=== PATIENT | female | born 1945 ===

== ENCOUNTER 2016-07-08 16:26 | Emergency (ER) | payer MEDICARE, MEDICAID ==
[2016-07-08 16:27] VITALS: BMI 31.1
[2016-07-08 16:52] VITALS: TEMP 98
--- NOTE | 2016-07-08 18:23 | C.PDOC ---
History Of Present Illness The patient, a 70 y/o female, presents to the ED for evaluation of right forearm and wrist pain after she sustained a fall [employer]. Patient states she accidentally tripped and fell on a curb, leading to her current injury. Patient denies head injury, LOC, neck pain, back pain, extremity numbness/weakness. Time Seen by Provider: 07/08/16 16:52 Chief Complaint (Nursing): Upper Extremity Problem/Injury History Per: Patient History/Exam Limitations: no limitations Onset/Duration Of Symptoms: Hrs Current Symptoms Are (Timing): Still Present Quality: "Pain" Additional History Per: Patient Past Medical History Reviewed: Historical Data, Nursing Documentation, Vital Signs Vital Signs: Last Vital Signs Temp 98.0 F 07/08/16 16:48 Pulse 78 07/08/16 19:08 Resp 16 07/08/16 19:08 BP 137/81 07/08/16 19:08 Pulse Ox 96 07/08/16 20:43 - Medical History PMH: Hypercholesterolemia, Hypothyroidism Surgical History: Appendectomy, Cholecystectomy - [facility] Procedures APPLICATION OF SPLINT (10/20/14) Family History: States: Unknown Family Hx - Social History Hx Tobacco Use: No Hx Alcohol Use: No Hx Substance Use: No - Immunization History Hx Tetanus Toxoid Vaccination: No Hx Influenza Vaccination: No Hx Pneumococcal Vaccination: No Review Of Systems Except As Marked, All Systems Reviewed And Found Negative. Musculoskeletal: Positive for: Other (right elbow and right wrist pain ). Negative for: Neck Pain, Back Pain Neurological: Negative for: Weakness, Numbness, Other (no LOC/head injury ) Physical Exam - Physical Exam Appears: Non-toxic, No Acute Distress Skin: Normal Color, Warm, Dry Head: Atraumatic, Normacephalic, No Tenderness, No Swelling Eye(s): bilateral: Normal Inspection, PERRL, EOMI Oral Mucosa: Moist Neck: Normal ROM, Supple Chest: Symmetrical, No Deformity, No Tenderness Cardiovascular: Rhythm Regular, No Murmur Respiratory: Normal Breath Sounds, No Rales, No Rhonchi, No Wheezing Extremity: No Normal ROM (decreased to right upper extremity secondary to pain) , Tenderness (to right elbow and wrist on palpation), Capillary Refill (less than 2 seconds ), No Deformity, No Swelling Pulses: Right Radial: Normal Neurological/Psych: Oriented x3, Normal Speech, Normal Cognition Gait: Steady ED Course And Treatment O2 Sat by Pulse Oximetry: 96 (on RA) Pulse Ox Interpretation: Normal Progress Note: Right forearm, Right wrist, and right elbow XR ordered and reviewed. On reassessment, patient is resting comfortably, showing no signs of distress, and is stable for discharge. Patient is advised to follow up with orthopedic care within 1-2 days for further evaluation. Disposition - Disposition Referrals: Raul Ellis MD [Staff Provider] - Disposition: HOME/ ROUTINE Disposition Time: 18:21 Condition: STABLE Additional Instructions: Follow up with PMD / Ortho within 1-2 days. Return to ED if feel worse. Prescriptions: traMADol [Ultram] 50 mg PO Q6 #30 tab Instructions: Contusion in Adults (ED) - Clinical Impression Clinical Impression: Arm contusion - PA / RAILROAD HAND / Resident Statement MD/DO has reviewed & agrees with the documentation as recorded. - Scribe Statement The provider has reviewed the documentation as recorded by the Scribe (Chelsey Casey) All medical record entries made by the Scribe were at my direction and personally dictated by me. I have reviewed the chart and agree that the record accurately reflects my personal performance of the history, physical exam, medical decision making, and the department course for this patient. I have also personally directed, reviewed, and agree with the discharge instructions and disposition.
[2016-07-08 19:09] VITALS: BP 137/81; PULSE 78; RESP 16
[2016-07-08 20:41] VITALS: O2SAT 96
--- NOTE | 2016-07-09 08:50 | RAD ---
PROCEDURE: Radiographs of the Right Forearm HISTORY: fall COMPARISON: None available. TECHNIQUE: Frontal and lateral views obtained. FINDINGS: BONES: No fracture or destructive lesion. Coronoid spurring JOINT SPACES: Unremarkable. OTHER FINDINGS: None. IMPRESSION: No fracture dislocation. Degenerative spurring
--- NOTE | 2016-07-09 08:51 | RAD ---
PROCEDURE: Radiographs of the right elbow. HISTORY: fall COMPARISON: No prior. FINDINGS: BONES: Mild coronoid spurring. No fracture. JOINTS: Normal. No osteoarthritis. SOFT TISSUES: Normal. JOINT EFFUSION: None. OTHER FINDINGS: None. IMPRESSION: Mild coronoid spurring. No fracture or dislocation
--- NOTE | 2016-07-09 08:52 | RAD ---
PROCEDURE: Right Wrist Radiographs. HISTORY: fal COMPARISON: None. FINDINGS: BONES: Scattered subchondral cysts. No fracture. JOINTS: Diffuse joint space narrowing-radiocarpal and intercarpal, carpal 1st metacarpal and 1st metacarpal-phalangeal No dislocation. SOFT TISSUES: Normal. OTHER FINDINGS: None. IMPRESSION: No fracture or dislocation. Degenerative changes
== END 2016-07-08 19:08 | disposition home or self-care (01) ==
LOC: C.ER 16:26
DX: S40.021A Contusion of right upper arm, initial encounter (principal); W10.1XXA Fall (on)(from) sidewalk curb, initial encounter; Y92.410 Unspecified street and highway as the place of occurrence of the external cause

== ENCOUNTER 2016-07-23 11:05 | Emergency (ER) | payer MEDICARE, MEDICAID ==
[2016-07-23] MEDS ORDERED: Oxycodone/Acetaminophen 5/325 mg Tab ONE (12:30)
--- NOTE | 2016-07-23 21:25 | RAD ---
PROCEDURE: HISTORY: Pain COMPARISON: None TECHNIQUE: Three views FINDINGS: There is heterogeneous attic and lucent density projecting over the central distal femoral metaphyseal to epiphyseal region this has a matrix simulating cartilage -an enchondroma -bone infarct is believe most likely. Comparison with prior studies if available is recommended. No cortical disruption noted. The medial femoral tibial joint spaces narrowed a few small tibial spine and femoral condylar spurs are noted. Posterior patellofemoral joint space narrowing and superior patellar spurring noted. A small suprapatellar joint effusion is possible. 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 If patient has prior outside studies ease to be helpful in ensuring stability of this appearance. Possible joint effusion
--- NOTE | 2016-07-24 13:51 | VASCLAB ---
PROCEDURE: Right Lower Extremity Venous Duplex Exam. HISTORY: Leg pain PRIORS: None. TECHNIQUE: Right common femoral, femoral, popliteal and posterior tibial, peroneal and great saphenous veins were evaluated. Flow was assessed with color Doppler, compressibility, assessment of phasic flow and augmentation response. Report prepared by WOLFGANG Ashraf, RVT FINDINGS: RIGHT: 1. Common Femoral Vein: 1.1. Compressibility - Fully compressible: Thrombus - None: Flow - Phasic: Augmentation -Normal: Reflux - None. 2. Femoral Vein: 2.1. Compressibility - Fully compressible: Thrombus - None: Flow - Phasic: Augmentation -Normal: Reflux - None. 3. Popliteal Vein: 3.1. Compressibility - Fully compressible: Thrombus - None: Flow - Phasic: Augmentation -Normal: Reflux - None. 4. Posterior Tibial Vein: 4.1. Compressibility - Fully compressible: Thrombus - None: Flow - Phasic: Augmentation -Normal: Reflux - None. 5. Peroneal Vein: 5.1. Compressibility - Fully compressible: Thrombus - None: Flow - Phasic: Augmentation -Normal: Reflux - None. 6. Great Saphenous Vein: 6.1. Compressibility - Fully compressible: Thrombus -None: Flow - Phasic: Augmentation - Normal: Reflux - None. OTHER FINDINGS: IMPRESSION: No evidence of deep or superficial vein thrombosis of the right lower extremity with excellent venous flow. Normal valve function noted of the right side. Normal venous flow noted in the left common femoral vein.
== END 2016-07-23 15:00 | disposition home or self-care (01) ==
LOC: C.ER 11:05
DX: M25.561 Pain in right knee (principal)

== ENCOUNTER 2018-05-18 10:39 | Outpatient (CLI) | payer MEDICARE, MEDICAID | END 2018-05-18 10:40 | disposition home or self-care (01) | LOC: C.USIC 10:39 | DX: E03.9 Hypothyroidism, unspecified (principal); E04.2 Nontoxic multinodular goiter; Z13.9 Encounter for screening, unspecified ==